=== PATIENT | female | born 1995 | race Caucasian/White ===

== ENCOUNTER 2018-04-10 03:10 | Inpatient (IN) | payer OTHER ==
[2018-04-10] MEDS ORDERED: MEASLES-MUMPS-RUBELLA VACC/PF 12,500 UNIT/0.5 ML VIAL SQ ONE (03:24)
[2018-04-10] MEDS ORDERED: WITCH HAZEL 1 EACH MED..PAD TOPICAL PRN (03:24)
[2018-04-10] MEDS ORDERED: ZOLPIDEM 5 MG TAB PO PRN (03:24)
[2018-04-10] MEDS ORDERED: LANOLIN CREAM 5 GM TUBE TOPICAL PRN (03:24)
[2018-04-10] MEDS ORDERED: diphenhydrAMINE 50 MG/ML 1 ML VIAL IVP PRN ×2 (03:24)
[2018-04-10] MEDS ORDERED: diphenhydrAMINE 25 MG CAP PO PRN (03:24)
[2018-04-10] MEDS ORDERED: diphenhydrAMINE 50 MG CAP PO PRN (03:24)
[2018-04-10] MEDS ORDERED: ACETAMINOPHEN TAB 325 MG TAB PO PRN (03:24)
[2018-04-10] MEDS ORDERED: BENZOCAINE/MENTHOL SPRAY 1 GM/SPRAY AEROSOL TOPICAL PRN (03:24)
[2018-04-10] MEDS ORDERED: HYDROCORTISONE 2.5% RECTAL CREAM 30 GM TUBE RECTAL PRN (03:24)
[2018-04-10] MEDS ORDERED: SIMETHICONE 80 MG CHEWABLE PO PRN (03:24)
--- NOTE | 2018-04-10 03:27 | P.HPOB ---
History of Present Illness H&P Date: 04/10/18 Chief Complaint: Intrauterine : No care Patient is a 23-year-old at unknown dates due to no care. She relates that she did not know she was until this evening. She says at about midnight tonight she began having back pain she did not think anything of it as she was moving from [facility] to [facility] earlier today and thought it was just from her moving. She then was brought to the emergency room and at that point she was determined be brought up to labor and delivery in active labor. She was complete and pushing by the time she got to labor and delivery heart tones were noted and were in the approximate 140s. With 1 push she delivered a viable male over an intact perineum. Please see separate dictation. Past medical history none Past surgical history none ALLERGIES none Family history none Social history none Assessment intrauterine unknown dates. Plan had spontaneous vaginal delivery Exam Osteopathic Statement: *. No significant issues noted on an osteopathic structural exam other than those noted in the History and Physical/Consult. - OBG Physical Exam Breast: both: normal (no masses) Abdomen: bowel sounds normal, no diffuse tenderness, no bruit present, no guarding noted, no hepatomegaly, no splenomegaly, no mass Vulva: both: normal Vagina: normal moisture, no discharge Cervix: no lesion, no discharge Uterus: normal size, normal contour Adnexa: both: normal Anus/Rectum: normal perianal skin, no rectal mass, no hemorrhoids, heme negative
--- NOTE | 2018-04-10 03:28 | P.PROBDLV ---
Vaginal Delivery Note - . Vaginal Delivery Note: Patient progressed to complete and pushing with spontaneous vaginal delivery of a viable male over an intact perineum. Falling deliver the head anterior posterior shoulders were delivered with gentle downward and upward traction and thick meconium was noted. Mouth nares were then immediately bulb suctioned and nursery personnel was present to assume care. Cord was clamped cut and baby was taken to special care nursery as a precaution. Placenta was then delivered intact and Pitocin was added to the IV. scores are 9 and 9 at one and 5 minutes respectively and the weight was 9 lbs. 2 oz. Currently both mother and baby appear stable
[2018-04-10] MEDS ORDERED: OXYTOCIN 10 UNIT/ML 1 ML VIAL IM ONE (03:57)
[2018-04-10 04:16] VITALS: BMI 23.6
[2018-04-10] MEDS: IBUPROFEN 600 MG TAB PO PRN ×2 (04:18→17:15)
[2018-04-10 04:43] LABS: Appearance,Urine Clear (Clear); Bilirubin,Urine Negative (Negative); Blood,Urine Negative (Negative); Color,Urine Yellow; Glucose,Urine (UA) Negative (Negative); Hyaline Casts,Urine 1 /lpf (0-2); Ketones,Urine 2+ (Negative); Leukocyte Esterase,Urine Negative (Negative); Mucus,Urine Moderate /hpf; Nitrite,Urine Negative (Negative); Protein,Urine 1+ (Negative); RBC,Urine 1 /hpf (0-5); Specific Gravity,Urine 1.022 (1.001-1.035); Squamous Epithelial Cell,Urine <1 /hpf (0-4); WBC,Urine 2 /hpf (0-5)
[2018-04-10 04:48] LABS: Amphetamine Screen,Urine Not Detected (NotDetected); Barbiturate Screen,Urine Not Detected (NotDetected); Benzodiazepines Screen,Urine Not Detected (NotDetected); Cocaine Screen,Urine Not Detected (NotDetected); Methadone Screen, Urine Not Detected (NotDetected); Opiate Screen,Urine Not Detected (NotDetected); Oxycodone Screen, Urine Not Detected (NotDetected); Phencyclidine Screen,Urine Not Detected (NotDetected); Tricyclic Antidepressant,Urine Not Detected (NotDetected); Urn Cannabinoid Scrn Not Detected (NotDetected)
[2018-04-10] MEDS: SENNOSIDES-DOCUSATE SODIUM 1 EACH TAB PO SCH ×2 (08:00→22:14)
[2018-04-11] MEDS: IBUPROFEN 600 MG TAB PO PRN ×4 (01:02→22:21)
[2018-04-11] MEDS: SENNOSIDES-DOCUSATE SODIUM 1 EACH TAB PO SCH ×2 (08:57→20:47)
--- NOTE | 2018-04-11 09:49 | P.PNOBGVD ---
Subjective - Subjective Principal diagnosis: day 1 Interval history: Overall Lillian is doing very well day 1. She is ambulating and voiding, she is tolerating her diet. She will let to go home tomorrow. Discharge instructions were thoroughly reviewed today and all questions are answered for her today and we'll plan discharged home tomorrow. Patient reports: Reports appetite normal, Reports voiding normally, Reports pain well controlled, Reports ambulating normally [place]: doing well Objective - Latest Vital Signs Latest vital signs: Vital Signs Temp Pulse Resp BP 04/11/18 08:00 99.0 F 60 18 113/69 04/10/18 23:55 97.9 F 67 16 124/70 04/10/18 20:00 97.8 F 67 16 138/93 04/10/18 16:00 98.5 F 64 18 135/97 04/10/18 12:00 98.0 F 61 18 132/85 - Exam Lungs: bilateral: normal Chest: Normal S1, Normal S2 Extremities: Present: normal Abdomen: Present: normal appearance, soft Uterus: Present: normal, firm
[2018-04-11 10:13] LABS: Basophils % (A) 0 %; Eosinophils # (A) 0.1 k/uL (0-0.7); Eosinophils % (A) 2 %; HCT 31.1 % (34.0-46.0); HGB 10.2 gm/dL (11.4-16.0); Hypochromasia Slight; Lymphocytes # (A) 1.5 k/uL (1.0-4.8); Lymphocytes % (A) 18 %; MCH 26.2 pg (25.0-35.0); MCHC 32.8 g/dL (31.0-37.0); MCV 79.8 fL (80.0-100.0); Mean Platelet Volume 7.6; Monocytes # (A) 0.4 k/uL (0-1.0); Monocytes % (A) 5 %; Neutrophils # (A) 6.1 k/uL (1.3-7.7); Neutrophils % (A) 74 %; Platelet Count 183 k/uL (150-450); RBC 3.89 m/uL (3.80-5.40); RDW 15.6 % (11.5-15.5); WBC 8.3 k/uL (3.8-10.6)
[2018-04-11 13:22] LABS: C. trachomatis,PCR Negative (Neg,Equiv); Chlamydia trachomatis Source Urine; N. gonorrhoeae,PCR Negative (Neg,Equiv); Neisseria Source Urine
[2018-04-11 23:55] VITALS: RESP 16; TEMP 98.3
[2018-04-12] MEDS: IBUPROFEN 600 MG TAB PO PRN (06:06)
[2018-04-12 08:31] VITALS: BP 118/69; PULSE 71
--- NOTE | 2018-04-12 10:15 | P.DS ---
Providers Date of admission: 04/10/18 03:17 Expected date of discharge: 04/12/18 Attending physician: Tim Bond Primary care physician: Tim Bond [facility] [place] Course: Lillian is seen and evaluated day 2. She is ambulating, voiding and she is tolerating her diet. She voices no complaints and we discharge to home today. She'll follow up me in 4 weeks as she needs a note to go back to work early. Otherwise prescription for Motrin was sent to her pharmacy. All the questions are answered for her at this time. Her heart was regular, lungs were clear, extremities without without pain. Abdomen was soft uterus is firm and lochia was reported light. Assessment day 2. Plan discharged home follow up with me in 4 weeks. Patient Condition at Discharge: Good Plan - Discharge Summary New Discharge Prescriptions: New Ibuprofen [Motrin] 600 mg PO Q6HR PRN #30 tab PRN Reason: Pain Discharge Medication List Ibuprofen [Motrin] 600 mg PO Q6HR PRN #30 tab 04/11/18 [Rx] Follow up Appointment(s)/Referral(s): Tim Bond DO [Primary Care Provider] - 4 Weeks Activity/Diet/Wound Care/Special Instructions: No heavy lifting, limit stairs and driving, and pelvic rest. If any high temperatures, heavy bleeding, or severe pain call my office Discharge Disposition: HOME SELF-CARE
== END 2018-04-12 11:30 | disposition home or self-care (01) | DRG 775 ==
LOC: FBPOP 03:10 → 4FBP 03:17
PROVIDERS: ADMIT Obstetrics & Gynecology; ATTEND Obstetrics & Gynecology
PROC: 10E0XZZ Delivery of Products of Conception, External Approach (ICD-10-PCS; principal; 2018-04-10)
DX: O77.0 Labor and delivery complicated by meconium in amniotic fluid (principal); O09.33 Supervision of pregnancy with insufficient antenatal care, third trimester; Z3A.38 38 weeks gestation of pregnancy; Z37.0 Single live birth
CPT/HCPCS: 80306; 81001; 85025; 86762; 86850; 86900; 86901; 87340; 87491; 87591; 88307; 99213

== ENCOUNTER → 2019-10-05 | Outpatient (CLI) | payer OTHER ==
--- NOTE | 2019-10-05 13:53 | FL ---
EXAMINATION TYPE: FL barium swallow DATE OF EXAM: 10/05/2019 CLINICAL HISTORY: Dysphagia. Coughing episodes after every swallow. TECHNIQUE: A double contrast esophagram is performed utilizing air and barium. A total of 2 minutes and 21 seconds of fluoroscopic time was utilized during procedure. 34 fluoroscopic images were saved during the examination. COMPARISON: None FINDINGS: Lateral images demonstrate no evidence of laryngeal penetration nor aspiration. A scant abbie unt of retention in the piriform sinuses and posterior pharyngeal wall are seen throughout the examin ation. The esophagus shows normal motility and emptying into the stomach. No evidence of hiatal yaa ia or stricture noted. No significant gastroesophageal reflux was seen during real time performance o f this study. IMPRESSION: 1. Scant amount of posterior pharyngeal wall and vallecular retention of contrast that could account for the patient's symptoms. Direct visualization could be performed. 2. No gastroesophageal reflux, stricture, or hernia.
== END | disposition home or self-care (01) ==
LOC: RADUSWWP 10:38
PROVIDERS: ATTEND Family Medicine
DX: R13.10 Dysphagia, unspecified (principal); Z72.4 Inappropriate diet and eating habits
CPT/HCPCS: 74220

== ENCOUNTER → 2019-11-02 | Outpatient (CLI) | payer OTHER ==
--- NOTE | 2019-11-02 12:42 | US ---
EXAMINATION TYPE: US thyroid st tissue head/neck DATE OF EXAM: 11/02/2019 COMPARISON: Barium Swallow CLINICAL HISTORY: E04.9 Nontoxic goiter, unspecified. Difficulty swallowing food. GLAND SIZE: Right Lobe: 5.2 x 2.0 x 1.9 cm Overall Parenchyma: homogenous Left Lobe: 5.2 x 1.7 x 1.3 cm Overall Parenchyma: homogeneous Isthmus Thickness: 0.1 cm NODULES RIGHT: # of nodules measured on right: 0 LEFT: # of nodules measured on left: 2 1. 0.3 X 0.3 x 0.2 cm hypoechoic complex cystic nodule at the upper pole with well-defined margins. This nodule is wider than tall and shows no intranodular vascularity. 2. 0.4 X 0.3 x 0.2 cm hypoechoic cystic nodule at the lower pole with well-defined margins. This no dule is wider than tall and shows no intranodular vascularity. ISTHMUS: # of nodules measured in the isthmus: 0 Bilateral neck scanned: no evidence of lymphadenopathy. IMPRESSION: Enlarged thyroid lobes with underlying heterogeneity and small nodules.
== END | disposition home or self-care (01) ==
LOC: RADUSWWP 11:57
PROVIDERS: ATTEND Family Medicine
DX: E04.2 Nontoxic multinodular goiter (principal)
CPT/HCPCS: 76536

== ENCOUNTER → 2020-01-20 | Outpatient (CLI) | payer OTHER ==
--- NOTE | 2020-01-20 09:42 | CT ---
EXAMINATION TYPE: CT soft tissue neck w con DATE OF EXAM: 01/20/2020 9:21 AM COMPARISON: Ultrasound thyroid 11/02/2019 HISTORY: Difficulty swallowing CT DLP: 432.4 mGycm Automated exposure control for dose reduction was used. CONTRAST: CT scan of the neck is performed following with IV Contrast, patient injected with 100 mL of Isovue 3 00. Axial images are obtained, coronal and sagittal reformatted images are reviewed. FINDINGS: Thyroid enhances homogeneously. Vocal cords have a normal appearance. Oropharynx and nasopharynx are symmetric given position. Parotid glands and submandibular glands have a normal appearance. There is bilateral shotty adenopathy in the parapharyngeal space and carotid space with a single lymp h node on the left measuring short axis of 1 cm compatible with pathologic adenopathy. Vertebral column is of normal appearance. Visualized intracranial structures are symmetric. Orbital s tructures are symmetric. Cerebellar tonsils are low-lying in position. Correlate clinically Retropharyngeal soft tissue structures are within normal limits. Lung apices are clear. Residual thym ic tissue noted. IMPRESSION: 1. Thyroid enhances homogeneously. No thyroid nodules. 2. Bilateral parapharyngeal and carotid space shotty adenopathy with a single borderline lymph node noted on the left measuring 1 cm in short axis. 3. Low-lying cerebellar tonsils correlate clinically.
== END | disposition home or self-care (01) ==
LOC: RADCTMAIN 08:51
PROVIDERS: ATTEND Otolaryngology Facial Plastic Surgery
DX: R59.9 Enlarged lymph nodes, unspecified (principal)
CPT/HCPCS: 70491; Q9967

== ENCOUNTER → 2020-02-03 | Outpatient (CLI) | payer OTHER | END | disposition home or self-care (01) | LOC: LABWHC1 10:12 | PROVIDERS: ATTEND Otolaryngology Facial Plastic Surgery | DX: Z11.59 Encounter for screening for other viral diseases (principal) ==

== ENCOUNTER → 2020-03-03 | Outpatient (CLI) | payer OTHER ==
--- NOTE | 2020-03-04 21:11 | CT ---
EXAMINATION TYPE: CT chest wo con DATE OF EXAM: 03/03/2020 COMPARISON: None HISTORY: 24-year-old female R06.00 Shortness of breath x6 months, K21.9 GERD. TECHNIQUE: Contiguous axial scanning of the chest without IV contrast. Coronal and sagittal reconstru ctions performed. CT DLP: 244.1 mGycm Automated exposure control for dose reduction was used. FINDINGS: Heart normal size with trace anterior basilar pericardial fluid. Aorta normal caliber with conventional arch vessel branching anatomy. Scattered nonenlarged mediastinal lymph nodes are present measuring up to 7 mm in the right paratrach eal region. No thoracic lymphadenopathy by CT size criteria. Minimal apical pleural-parenchymal scarring noted. No consolidation or pleural effusion. Minimal stra nds of atelectasis at the left base. No sizable hiatal hernia is identified. Visualized upper abdomen otherwise shows no gross abnormal. Bones: No osseous destructive process. IMPRESSION: 1. MINIMAL STRANDS OF ATELECTASIS AT THE LEFT BASE. NO ACUTE PULMONARY PROCESS. 2. NO EVIDENT HIATAL HERNIA.
== END | disposition home or self-care (01) ==
LOC: RADCTMAIN 07:52
PROVIDERS: ATTEND Internal Medicine Pulmonary Disease
DX: J98.11 Atelectasis (principal); K21.9 Gastro-esophageal reflux disease without esophagitis; J45.909 Unspecified asthma, uncomplicated
CPT/HCPCS: 71250

== ENCOUNTER 2020-04-02 08:24 | Day surgery (SDC) | payer OTHER ==
[2020-03-28 12:14] VITALS: BMI 29.5
[~2020-04-02 08:24] MED LIST: LACTATED RINGERS 1,000 ML IV SCH; LIDOCAINE 1% (10MG/ML) FOR IV START INTRADERMA PRN
[2020-04-02 08:43] VITALS: TEMP 97.8
[2020-04-02] MEDS ORDERED: LACTATED RINGERS 1,000 ML IV ONE (08:51)
[2020-04-02] MEDS ORDERED: PROPOFOL 10 MG/ML 20 ML VIAL IV ONE (09:28)
[2020-04-02 09:45] VITALS: RESP 16
--- NOTE | 2020-04-02 09:51 | P.PCN ---
Date of Procedure: 04/02/20 Description of Procedure: BRIEF HISTORY: Patient is a 25-year-old female presenting for outpatient endoscopy with esophagogastroduodenoscopy for evaluation of symptoms of esophageal dysphagia. Patient has had extensive evaluation including with ENT and barium swallow. Currently she is on PPI therapy. PROCEDURE PERFORMED: Esophagogastroduodenoscopy with biopsy. PREOPERATIVE DIAGNOSIS: Dysphagia, esophageal dysphagia. ESTIMATED BLOOD LOSS: Minimal. IV sedation per anesthesia. PROCEDURE: After informed consent was obtained, the patient was brought into the endoscopy unit. IV sedation was administered by Anesthesia under continuous monitoring. Initially the Olympus GIF-190 video endoscope was inserted into the mouth. Esophagus intubated without any difficulty. It was gradually advanced into the stomach and duodenum and carefully examined. The bulb and the second part of the duodenum appeared normal, with biopsies taken to rule out celiac sprue. The scope at this time was withdrawn to the stomach, adequately insufflated with air, and upon careful examination, mucosa of the antrum, body, cardia and the fundus appeared normal, except for some mild scattered erythema in the antrum with biopsies of antrum and body. The scope was then withdrawn into the esophagus. The GE junction was located at 42 cm from the incisors with biopsies taken. The esophagus appeared normal, with mid esophageal biopsies taken to rule out eosinophilic esophagitis. There were no erosions or ulcerations seen and the patient tolerated the procedure well. IMPRESSION: 1. Mild gastritis, antrum and body biopsies. 2. Biopsies of the duodenum, GE junction and mid esophagus. RECOMMENDATIONS: The findings of this examination were discussed with the patient . Okay to resume diet. Okay to resume medications. Continue omeprazole therapy. Await pathology from biopsies. Follow up in GI clinic in the next 1-2 weeks for results of biopsies.
[2020-04-02 10:03] VITALS: BP 127/75; PULSE 59
== END 2020-04-02 10:30 | disposition home or self-care (01) ==
LOC: ORWHC2ENDO 08:24
PROVIDERS: ATTEND Internal Medicine
DX: K21.0 Gastro-esophageal reflux disease with esophagitis (principal); K29.50 Unspecified chronic gastritis without bleeding; J30.2 Other seasonal allergic rhinitis; Z79.51 Long term (current) use of inhaled steroids; Z79.899 Other long term (current) drug therapy
CPT/HCPCS: 81025; 88305; 43239; J2704

== ENCOUNTER → 2020-05-03 | Outpatient (CLI) | payer OTHER ==
--- NOTE | 2020-05-03 07:59 | CT ---
EXAMINATION TYPE: CT sinus wo con DATE OF EXAM: 05/03/2020 COMPARISON: NONE HISTORY: deviated nasal septum CT DLP: 705.9 mGycm. Automated Exposure Control for Dose Reduction was Utilized. TECHNIQUE: CT scan of the sinuses is performed without contrast, axial images are obtained, coronal r eformatted images are also reviewed. FINDINGS: Minimal lobulated mucosal thickening inferior left maxillary sinus. Remainder paranasal si nuses are clear without suspicious opacification or air-fluid levels. The ostiomeatal complex is snow nt bilaterally on coronal image 21. Some right-sided antral mucosal thickening is noted. Nasal septum slightly deviated to the left of midline superiorly into the right of midline inferiorly Visualized portion of mastoid air cells show no abnormal opacification. The globes are intact bilate rally. Visualized portion of brain parenchyma is unremarkable. IMPRESSION: Nasal septal deviation confirmed. No acute sinusitis is evident.
== END | disposition home or self-care (01) ==
LOC: RADCTMAIN 07:01
PROVIDERS: ATTEND Otolaryngology Facial Plastic Surgery
DX: J34.2 Deviated nasal septum (principal)
CPT/HCPCS: 70486

== ENCOUNTER → 2020-07-06 | Outpatient (CLI) | payer OTHER | END | disposition home or self-care (01) | LOC: LABWHC1 07:28 | PROVIDERS: ATTEND Otolaryngology | DX: Z01.818 Encounter for other preprocedural examination (principal) | CPT/HCPCS: U0003; C9803 ==

== ENCOUNTER → 2022-07-21 | Outpatient (CLI) | payer OTHER ==
--- NOTE | 2022-07-21 09:27 | XR ---
EXAMINATION TYPE: XR cervical spine 6 views comp, XR lumbosacral spine 5 views, XR thoracic spine 3 v iews DATE OF EXAM: 07/21/2022 COMPARISON: None HISTORY: 27-year-old female M54.2, M40.50, M54.50, M25.551 FINDINGS: Cervical spine: Straightening of the normal cervical lordosis. No predental space widening or prevertebral soft tissu e swelling. Disc interspaces are maintained. Normal odontoid view. Alignment is maintained. No signif icant bony neuroforaminal narrowing on either side. Thoracic spine: 12 rib bearing thoracic vertebral bodies. All pedicles are visualized. Vertebral body heights are pre served and alignment is maintained. There is minimal endplate spondylosis lower third thoracic spine. Lumbar spine: 5 lumbar type vertebral bodies. No pars interarticularis defect. Mild early facet degenerative change lower lumbar spine. Vertebral body heights are preserved and alignment is maintained. Disc interspac es are preserved. IMPRESSION: 1. Cervical spine: Straightening of the normal cervical lordosis could be positional or due to muscle spasm. 2. Thoracic spine: Minimal endplate spondylosis lower thoracic thoracic spine. 3. Lumbar spine: Mild early facet degenerative change lower lumbar spine. No vertebral compression co llapse or malalignment.
--- NOTE | 2022-07-21 09:32 | XR ---
EXAMINATION TYPE: XR Hip Bilateral Complete (2 views each side) DATE OF EXAM: 07/21/2022 COMPARISON: NONE HISTORY: 27-year-old female M54.2, M40.50, M54.50, M25.551 FINDINGS: Mild marginal spurring along the superolateral margin of the right acetabulum. Hip joint space mainta ined on both sides. No acute fracture, subluxation, or dislocation. IMPRESSION: There may be very mild early degenerative spurring at the right hip. Otherwise, no acute osseous abno rmality seen.
== END | disposition home or self-care (01) ==
LOC: RADXRMAIN 08:39
PROVIDERS: ATTEND Nurse Practitioner Family
DX: M47.814 Spondylosis without myelopathy or radiculopathy, thoracic region (principal); M47.816 Spondylosis without myelopathy or radiculopathy, lumbar region; M25.551 Pain in right hip
CPT/HCPCS: 72050; 72070; 72110; 73521

== ENCOUNTER → 2022-11-24 | Outpatient (CLI) | payer OTHER ==
--- NOTE | 2022-11-24 12:06 | FL ---
EXAMINATION TYPE: FL barium swallow DATE OF EXAM: 11/24/2022 CLINICAL HISTORY: Dysphasia. Coughing after eating. Food feeling like it stuck in back of throat. TECHNIQUE: A double contrast esophagram is performed utilizing air and barium. A total of 21 second s of fluoroscopic time was utilized during procedure and 33 images obtained COMPARISON: Prior esophagram October 05, 2019 FINDINGS: The esophagus redemonstrates normal motility and emptying into the stomach. No proximal div erticulum. No evidence of fixed hiatal hernia or stricture noted. No significant gastroesophageal ref lux was seen during real time performance of this study. IMPRESSION: No significant abnormality is seen to account for patient's symptoms. Total DAP = 245.39 .
== END | disposition home or self-care (01) ==
LOC: RADUSWWP 11:08
PROVIDERS: ATTEND Family Medicine
DX: R13.10 Dysphagia, unspecified (principal)
CPT/HCPCS: 74220

== ENCOUNTER 2023-01-23 11:11 | Day surgery (SDC) | payer OTHER ==
[2023-01-21 12:21] VITALS: BMI 27.8
[~2023-01-23 11:11] MED LIST changes: -LIDOCAINE 1% (10MG/ML) FOR IV START INTRADERMA PRN
[2023-01-23 13:26] VITALS: RESP 16; TEMP 97
[2023-01-23] MEDS ORDERED: PROPOFOL 10 MG/ML 20 ML VIAL IV ONE (14:57)
[2023-01-23] MEDS ORDERED: LIDOCAINE 2% INJ 20 MG/ML (2 ML VIAL) ONE (14:57)
--- NOTE | 2023-01-23 15:23 | P.PCN ---
Date of Procedure: 01/23/23 Procedure(s) Performed: BRIEF HISTORY: Patient is a 27-year-old, pleasant, female scheduled for an upper endoscopy as a part of evaluation of intermittent dysphagia to solids for the last 2 years duration. Lately her symptoms have been progressively getting worse and she is been having dysphagia to solids as well as esophagitis. She is hence scheduled for an upper endoscopy with a possible dilation. PROCEDURE PERFORMED: Esophagogastroduodenoscopy with biopsy. PREOPERATIVE DIAGNOSIS: Progressive dysphagia to solids for the last 3 years duration. IV sedation per anesthesia. PROCEDURE: After informed consent was obtained, the patient was brought into the endoscopy unit. IV sedation was administered by Anesthesia under continuous monitoring. Initially the Olympus GIF-140 video endoscope was inserted into the mouth. Esophagus intubated without any difficulty. It was gradually advanced into the stomach and duodenum and carefully examined. The bulb and the second part of the duodenum appeared normal. The scope at this time was withdrawn to the stomach, adequately insufflated with air, and upon careful examination, mucosa of the antrum, body, cardia and the fundus appeared normal. The scope was then withdrawn into the esophagus. The GE junction was located at 39 cm from the incisors. The esophagus appeared slightly thickened folds but no evidence of esophageal structure. Multiple biopsies were done from the mid and distal esophagus to evaluate for eosinophilic esophagitis.. There were no erosions or ulcerations seen and the patient tolerated the procedure well. IMPRESSION: 1. Slightly thickened mid and distal esophageal folds suspicious for eosinophilic esophagitis status post multiple biopsies. 2. No evidence of esophageal stricture. RECOMMENDATIONS: The findings of this examination were discussed with the patient as well as a family. She'll be started back on omeprazole 20 mg twice daily and briefly educated about diet modification. She'll be seen in office in 2-3 weeks.
[2023-01-23 15:38] VITALS: BP 125/76; PULSE 60
== END 2023-01-23 15:56 ==
LOC: ORWHC2ENDO 11:11
PROVIDERS: ATTEND Internal Medicine Gastroenterology
DX: K29.50 Unspecified chronic gastritis without bleeding (principal); I25.10 Atherosclerotic heart disease of native coronary artery without angina pectoris; K21.9 Gastro-esophageal reflux disease without esophagitis; Z79.899 Other long term (current) drug therapy
CPT/HCPCS: 81025; 88305; 43239; J2704; J2001

== ENCOUNTER 2023-02-10 06:42 | Emergency (ER) | payer OTHER ==
[2023-02-10] MEDS ORDERED: KETOROLAC 15 MG/ML 1 ML VIAL IM STA (07:13)
--- NOTE | 2023-02-10 07:19 | ED ---
General Adult HPI - General Chief complaint: Extremity Injury, Upper Stated complaint: Shoulder Pain Time Seen by Provider: 02/10/23 07:06 Source: patient, RN notes reviewed, old records reviewed Mode of arrival: ambulatory Limitations: no limitations - History of Present Illness Initial comments: 27 yo female presenting for evaluation of right shoulder pain and upper back pain. Patient states on Thursday she was moving and states she had some general soreness but this morning woke with severe pain in the right shoulder. No difficulty breathing. No abdominal pain. Pain is worse with range of motion of the right shoulder. No specific fall or injury. Patient denies current . - Related Data Home Medications Medication Instructions Recorded Confirmed levonorgestreL [Mirena] 1 each IY DIRECTED 01/21/23 01/21/23 Previous Rx's Medication Instructions Recorded Cyclobenzaprine [Flexeril] 5 mg PO TID PRN #9 tablet 02/10/23 Ibuprofen [Motrin] 600 mg PO Q8HR PRN #24 tab 02/10/23 Allergies Allergy/AdvReac Type Severity Reaction Status Date / Time No Known Allergies Allergy Verified 01/21/23 12:14 Review of Systems ROS Statement: Those systems with pertinent positive or pertinent negative responses have been documented in the HPI. ROS Other: All systems not noted in ROS Statement are negative. Past Medical History Past Medical History: GERD/Reflux Additional Past Medical History / Comment(s): Seasonal allergies, recently at times hard to breathe, difficulty swallowing, throat feels like it's closed, has episodes of coughing when eating. History of Any Multi-Drug Resistant Organisms: None Reported Past Surgical History: No Surgical Hx Reported Additional Past Surgical History / Comment(s): EGD. SEPTOPLASTY Past Anesthesia/Blood Transfusion Reactions: No Reported Reaction Additional Past Anesthesia/Blood Transfusion Reaction / Comment(s): No previous surgery or blood transfusion. Past Psychological History: No Psychological Hx Reported Smoking Status: Never smoker - Past Family History Mother Family Medical History: No Reported History Additional Family Medical History / Comment(s): Maternal Grandmother had lymphoma General Exam Limitations: no limitations General appearance: alert, in no apparent distress Head exam: Present: atraumatic, normocephalic Eye exam: Present: normal appearance, PERRL ENT exam: Present: normal exam Neck exam: Present: normal inspection. Absent: tenderness, meningismus Respiratory exam: Present: normal lung sounds bilaterally. Absent: respiratory distress, wheezes Cardiovascular Exam: Present: regular rate, normal rhythm GI/Abdominal exam: Present: soft. 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 Absent: full ROM (Pain over the medial margin of the right scapula, pain with range of motion of the right shoulder.) Neurological exam: Present: alert, oriented X3, CN II-XII intact. Absent: motor sensory deficit Psychiatric exam: Present: normal affect, normal mood Skin exam: Present: warm, dry Course Vital Signs 02/10/23 06:58 Temperature 97.5 F L Pulse Rate 59 L Respiratory 16 Rate Blood Pressure 127/90 O2 Sat by Pulse 99 Oximetry Medical Decision Making - Medical Decision Making Was pt. sent in by a medical professional or institution (, [facility], ROAD PATCHER, urgent care, hospital, or fdc...) When possible be specific @ -No Did you speak to anyone other than the patient for history (EMS, parent, family, police, friend...)? What history was obtained from this source @ -No Did you review nursing and triage notes (agree or disagree)? Why? @ -I reviewed and agree with nursing and triage notes Were old charts reviewed (outside hosp., previous admission, EMS record, old EKG, old radiological studies, urgent care reports/EKG's, fdc records)? Report findings @ -No old charts were reviewed Differential Diagnosis (chest pain, altered mental status, abdominal pain women, abdominal pain men, vaginal bleeding, weakness, fever, dyspnea, syncope, headache, dizziness, GI bleed, back pain, seizure, CVA, palpatations, mental health, musculoskeletal)? @ -Differential Musculoskeletal Muscular strain, contusion, ligament sprain, fracture, arthritis, septic arthritis, bursitis, cellulitis, muscle spasm, nerve compression, DVT, arterial occlusion, herpes zoster, electrolyte abnormality, tumor.... This is not meant to be in all inclusive list EKG interpreted by me (3pts min.). @ -As above X-rays interpreted by me (1pt min.). @ -None done CT interpreted by me (1pt min.). @ -None done U/S interpreted by me (1pt. min.). @ -None done What testing was considered but not performed or refused? (CT, X-rays, U/S, labs)? Why? @ -None What meds were considered but not given or refused? Why? @ -None Did you discuss the management of the patient with other professionals (professionals i.e. , PA, ROAD PATCHER, lab, RT, psych nurse, social insurance specialist, fire captain, teacher, chief strategy officer, correctional case manager)? Give summary @ -No Was smoking cessation discussed for >3mins.? @ -No Was critical care preformed (if so, how long)? @ -No Were there social determinants of health that impacted care today? How? (Homelessness, low income, unemployed, alcoholism, drug addiction, transportation, low edu. Level, literacy, decrease access to med. care, nursing home, rehab)? @ -No Was there de-escalation of care discussed even if they declined (Discuss DNR or withdrawal of care, Hospice)? DNR status @ -No What co-morbidities impacted this encounter? (DM, HTN, Smoking, COPD, CAD, Cancer, CVA, ARF, Chemo, Hep., AIDS, mental health diagnosis, sleep apnea, morbid obesity)? @ -None Was patient admitted / discharged? Hospital course, mention meds given and route, prescriptions, significant lab abnormalities, going to OR and other pertinent info. @ -[27-year-old female with pain over the right rhomboid, and paraspinal muscles. No trauma to indicate the need for x-rays. Patient is given Toradol and Valium in the emergency department. She does have a ride. She will be prescribed anti-inflammatory and muscle relaxer. Patient states she has Spring at home from chronic low back pain. Undiagnosed new problem with uncertain prognosis? @ -No Drug Therapy requiring intensive monitoring for toxicity (Heparin, Nitro, Insulin, Cardizem)? @ -No Were any procedures done? @ -No Diagnosis/symptom? @ Right shoulder strain Acute, or Chronic, or Acute on Chronic? @ Acute Uncomplicated (without systemic symptoms) or Complicated (systemic symptoms)? @ -Uncomplicated Side effects of treatment? @ -No Exacerbation, Progression, or Severe Exacerbation? @ -No Poses a threat to life or bodily function? How? (Chest pain, [place], [place], pneumonia, PE, COPD, DKA, ARF, appy, cholecystitis, CVA, Diverticulitis, Homicidal, Suicidal, threat to staff... and all critical care pts) @ -No Disposition Clinical Impression: Strain of shoulder Disposition: HOME SELF-CARE Condition: Fair Instructions (If sedation given, give patient instructions): Shoulder Sprain (ED) Prescriptions: Cyclobenzaprine [Flexeril] 5 mg PO TID PRN #9 tablet PRN Reason: Muscle Spasm Ibuprofen [Motrin] 600 mg PO Q8HR PRN #24 tab PRN Reason: Pain Is patient prescribed a controlled substance at d/c from ED?: No Referrals: Dann Castillo MD [Primary Care Provider] - 1-2 days Time of Disposition: 08:00
[2023-02-10 08:31] VITALS: BP 131/97; PULSE 71; RESP 19; TEMP 98.3
== END 2023-02-10 08:33 | disposition home or self-care (01) ==
LOC: EC 06:42
DX: S46.911A Strain of unspecified muscle, fascia and tendon at shoulder and upper arm level, right arm, initial encounter (principal); X58.XXXA Exposure to other specified factors, initial encounter
CPT/HCPCS: 99283; 96372 ×2; J3360; J1885

== ENCOUNTER → 2023-02-13 | Outpatient (CLI) | payer OTHER ==
--- NOTE | 2023-02-13 14:47 | XR ---
Cervical spine HISTORY: Neck pain COMPARISON: 07/21/2022. TECHNIQUE: 6 views of the cervical spine were obtained. FINDINGS: The craniovertebral junction relationships and prevertebral soft tissues are normal. The cervical vertebral segments are normal in height and alignment and there is no fracture subluxati on The disc spaces well-maintained. The facet joints and uncovertebral joints are intact. The neuroforamina are widely patent. IMPRESSION: No significant abnormality seen. No interval change.
--- NOTE | 2023-02-13 14:58 | XR ---
Right shoulder. HISTORY: Pain without trauma COMPARISON: None TECHNIQUE: 2 views of the right shoulder were obtained. FINDINGS: There is no fracture, dislocation, intraosseous or intra-articular adenopathy. There are no soft tiss ue abnormalities. IMPRESSION: No significant abnormality seen.
== END | disposition home or self-care (01) ==
LOC: RADXRMAIN 13:32
PROVIDERS: ATTEND Nurse Practitioner Family
DX: M25.511 Pain in right shoulder (principal); M54.2 Cervicalgia; S46.911A Strain of unspecified muscle, fascia and tendon at shoulder and upper arm level, right arm, initial encounter; X58.XXXA Exposure to other specified factors, initial encounter
CPT/HCPCS: 72050

== ENCOUNTER → 2023-02-25 | Outpatient (CLI) | payer OTHER ==
--- NOTE | 2023-02-25 13:52 | FL ---
EXAMINATION TYPE: FL barium swallow w video DATE OF EXAM: 02/25/2023 CLINICAL HISTORY: 27-year-old female R13.19, coughing episodes after solid foods, Dysphagia. TECHNIQUE: Deglutition study is performed utilizing thin liquid barium, honey and nectar thick liqui d barium, barium thick applesauce, and barium coated cracker. Total fluoroscopy time: 2 minutes 57 seconds. Total images: None. Real-time fluoroscopy support was provided to speech pathology. DOSE AREA PRODUCT (DAP) UGY*M,MGY*CM: 5 COMPARISON: None. FINDINGS: The oral and pharyngeal phases show satisfactory initiation and propagation with all modalities teste d. Normal mastication is seen with solid modalities tested. An episode of trace transient penetratio n with thin liquids. Otherwise, there is no evidence of penetration or aspiration with any modality t ested. No significant pharyngeal residue was appreciated. Patient has coughing episodes after solid ingestions. IMPRESSION: Functional swallow. Please refer to speech therapist notes for further details if necessary.
== END | disposition home or self-care (01) ==
LOC: RADFLMAIN 10:57
PROVIDERS: ATTEND Internal Medicine Gastroenterology
DX: R13.19 Other dysphagia (principal)
CPT/HCPCS: 74230

== ENCOUNTER → 2023-03-11 | Outpatient (CLI) | payer OTHER ==
--- NOTE | 2023-03-12 09:04 | CT ---
EXAMINATION TYPE: CT soft tissue neck w con DATE OF EXAM: 03/11/2023 6:02 PM COMPARISON: 01/20/2020 HISTORY: Swollen lymph nodes, family Hx of lymphoma. Difficulty swallowing and eating. CT DLP: 469.6 mGycm Automated exposure control for dose reduction was used. CONTRAST: CT scan of the neck is performed following with IV Contrast, patient injected with 100 ml mL of Isovu e 300. Axial images are obtained, coronal and sagittal reformatted images are reviewed. FINDINGS: Thyroid enhances homogeneously. Vocal cords have a normal appearance. Oropharynx and nasopharynx are symmetric given position. There are changes of chronic sinusitis most marked involving the right maxillary sinus. Parotid glands and submandibular glands have a normal appearance. There is bilateral shotty adenopath y in the parapharyngeal space and carotid space with a lymph node on the left measuring pathologic i n size and 1.6 x 1.0 cm compatible with pathologic adenopathy. Additional borderline lymph nodes are seen measuring 1.7 x 0.8 in the left carotid space and 1.2 x 0.8 cm in the right carotid space. Vertebral column is of normal appearance. Visualized intracranial structures are symmetric. Orbital s tructures are symmetric. Cerebellar tonsils are low- lying in position. Retropharyngeal soft tissue structures are within normal limits. Lung apices are clear. Residual thym ic tissue noted. IMPRESSION: 1. Chronic sinusitis. 2. Bilateral parapharyngeal and carotid space shotty adenopathy with a single persistent left carotid space lymphadenopathy measuring 1.6 x 1.0 cm. Findings appear similar relative to the prior exam. 3. 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
== END | disposition home or self-care (01) ==
LOC: RADCTMAIN 17:26
PROVIDERS: ATTEND Family Medicine
DX: J32.0 Chronic maxillary sinusitis (principal); R05.9 Cough, unspecified; R59.0 Localized enlarged lymph nodes; R13.10 Dysphagia, unspecified; Z80.7 Family history of other malignant neoplasms of lymphoid, hematopoietic and related tissues
CPT/HCPCS: 70491; Q9967

== ENCOUNTER → 2023-06-17 | Outpatient (CLI) | payer OTHER ==
--- NOTE | 2023-06-17 10:51 | MR ---
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 COMPARISON: CT 03/11/2023 TECHNIQUE: Multi planar, multi sequence imaging was performed utilizing: T1-weighted, T2-weighted, a nd turbo inversion recovery imaging of the cervical and thoracic spine. MR contrast: IV Contrast: cc , None. FINDINGS: CERVICAL: Alignment: The cervical vertebral bodies have preserved heights. Alignment is within normal limits gi tammy patient positioning. Bones: Bone signal is within normal limits. No abnormal bone marrow edema on inversion recovery seque nces. Cord: The spinal cord is unremarkable with regards to their signal intensity and morphology. Discs: Intervertebral disc signal is maintained. C2-C3: No significant disc pathology. The spinal canal is patent. No neural foraminal stenosis. C3-C4: No significant disc pathology. The spinal canal is patent. No neural foraminal stenosis. C4-C5: No significant disc pathology. The spinal canal is patent. No neural foraminal stenosis. C5-C6: A disc osteophyte complex is present with mild spinal canal stenosis. The osteophyte complex i mpresses upon the right anterior spinal cord. Spinal cord signal is maintained. No neural foraminal stenosis. C6-C7: A disc osteophyte complex is present with mild spinal canal stenosis. No neural foraminal keyanna nosis. C7-T1: No significant disc pathology. The spinal canal is patent. No neural foraminal stenosis. THORACIC: No evidence significant spinal canal or neural foraminal stenosis. Spinal cord is within no rmal limits Other: None. IMPRESSION: 1. No definitive evidence of disc herniation or significant spinal canal stenosis. 2. Minimal disc degeneration with associated osteoarthritic changes.
== END | disposition home or self-care (01) ==
LOC: RADMRIMAIN 06:47
PROVIDERS: ATTEND Neurological Surgery
DX: Q07.9 Congenital malformation of nervous system, unspecified (principal); M50.30 Other cervical disc degeneration, unspecified cervical region; M47.812 Spondylosis without myelopathy or radiculopathy, cervical region
CPT/HCPCS: 72141; 72146

== ENCOUNTER → 2023-09-04 | Outpatient (CLI) | payer OTHER ==
[2023-09-04 11:28] LABS: Partial Thromboplastin Time 26.7 sec (22.0-30.0); Prothrombin Time 10.8 sec (10.0-12.5)
[2023-09-04 15:08] LABS: Basophils # (A) 0.05 X 10*3/uL (0.00-0.10); Basophils % (A) 0.9 %; Eosinophils # (A) 0.13 X 10*3/uL (0.04-0.35); Eosinophils % (A) 2.4 %; HCT 39.8 % (37.2-46.3); HGB 13.1 g/dL (12.0-15.0); Lymphocytes # (A) 1.86 X 10*3/uL (0.90-5.00); Lymphocytes % (A) 33.9 %; MCH 29.6 pg (27.0-32.0); MCHC 32.9 g/dL (32.0-37.0); Mean Platelet Volume 9.8 FL (9.5-12.2); Monocytes # (A) 0.45 X 10*3/uL (0.20-1.00); Monocytes % (A) 8.2 %; NRBC Per 100 WBC 0 X 10*3/uL (0.00-0.01); Neutrophils # (A) 2.99 X 10*3/uL (1.80-7.70); Neutrophils % (A) 54.4 %; Platelet Count 271 X 10*3/uL (140-440); RBC 4.42 X 10*6/uL (4.10-5.20); WBC 5.49 X 10*3/uL (4.50-10.00)
[2023-09-04 15:36] LABS: BUN/Creat Ratio 13.22 Ratio (12.00-20.00); Blood Urea Nitrogen 11.9 mg/dL (9.0-27.0); Carbon Dioxide 25.7 mmol/L (21.6-31.8); Chloride 106 mmol/L (96-109); Glucose 88 mg/dL (70-110); Sodium 142 mmol/L (135-145)
[2023-09-04 15:37] LABS: ALT 13 U/L (8-44); AST 16 U/L (13-35); Albumin 4.3 g/dL (3.8-4.9); Albumin/Globulin Ratio 1.79 Ratio (1.60-3.17); Alkaline Phosphatase 65 U/L (41-126); Calcium 9.4 mg/dL (8.7-10.3); Globulin 2.4 g/dL (1.6-3.3); Total Bilirubin 0.6 mg/dL (0.3-1.2); Total Protein 6.7 g/dL (6.2-8.2)
[2023-09-04 15:59] LABS: Appearance,Urine Turbid (Clear); Bilirubin,Urine Negative (Negative); Blood,Urine Large (Negative); Color,Urine Dark Yellow (Yellow); Ketones,Urine Trace (Negative); Nitrite,Urine Negative (Negative); PH, Urine 5.5; Specific Gravity,Urine 1.027 (1.001-1.030)
[2023-09-04 16:20] LABS: Bacteria,Urine Trace
== END | disposition home or self-care (01) ==
LOC: LABWHC1 09:21
PROVIDERS: ATTEND Neurological Surgery
DX: G93.5 Compression of brain (principal); Q79.60 Ehlers-Danlos syndrome, unspecified
CPT/HCPCS: 36415; 80053; 81001; 83036; 85025; 85610; 85730

== ENCOUNTER → 2024-05-30 | Outpatient (CLI) | payer OTHER ==
--- NOTE | 2024-05-30 10:38 | CT ---
EXAMINATION TYPE: CT brain wo con DATE OF EXAM: 05/30/2024 COMPARISON: None INDICATION: HEADACHE DLP: 1029.90 mGycm, Automated exposure control for dose reduction was used. CONTRAST: None CT of the brain is performed utilizing 3 mm thick sections through the posterior fossa and 3 mm thick sections through the remaining calvarium. Study is performed within 24 hours of arrival to the hosp ital. No abnormal hyperdensity is present to suggest an acute intracranial hemorrhage. No mass lesion is evident. No acute infarcts are evident. Ventricles and sulci are appropriate for the patient age. Mucosal thickening is through the left maxillary sinus. Remaining paranasal sinuses and mastoid air c ells are clear. IMPRESSION: 1. No acute intracranial process. Follow up MRI can be performed as clinically indicated. [facility], , 05/30/2024 10:36 AM
--- NOTE | 2024-05-30 19:25 | CT ---
EXAMINATION TYPE: CT soft tissue neck wo con DATE OF EXAM: 05/30/2024 COMPARISON: 03/11/2023 HISTORY: HX OF ARNOLD- CHIARI SYNDROME SX SYMPTOMS COMING BACK W/ BUBLES COMING UP FROM SX SCAR CT DLP: 472.50 mGycm CONTRAST: None TECHNIQUE: Axial images at 3 mm thick sections. Reconstructed images in the coronal plane and sagitt al plane are reviewed. FINDINGS: Limited CT sections are obtained the lung apices. The lung apices appear clear. Postoccipi jonas craniotomy defect present prior. No surgery. CT neck: The torus tubarius and fossa of Rosenmuller are normal. [employer]ision [employer] Maker spaces are normal. Paranasal sinuses and mastoid air cells are clear. Parotid glands appear normal and symmetrical. Submandibular glands, are normal. Parapharyngeal spac es are normal. No suspicious adenopathy is evident. The hypopharynx appears within normal limits. Hypopharynx there is a small filling defect on the left vallecula. Example image series 2 image 2. D irect Visualization recommended. Neoplasm and debris are within the differential. This may extend fr om the posterior tongue on sagittal plane images. Vocal cord level appear symmetrical. Thyroid as visualized is normal. Osseous structures are normal. IMPRESSION: 1. Filling defect within the vallecula. Direct visualization left vallecula recommended for possible neoplasm.. [facility], , 05/30/2024 7:22 PM
== END | disposition home or self-care (01) ==
LOC: RADCTMAIN 08:12
PROVIDERS: ATTEND Family Medicine
DX: Q07.01 Arnold-Chiari syndrome with spina bifida (principal)
CPT/HCPCS: 70450; 70490